=== PATIENT | male | born 1965 ===

== ENCOUNTER → 2025-09-13 | Outpatient (CLI) | payer OTHER ==
[2025-09-13 20:02] LABS: Creatinine, Urine Random 84.5 mg/dL (27.00-270.00); Microalbumin, Random Urine 19.8 mg/L (0.000-20.000)
== END ==
LOC: LAB 16:15 → LAB SHORT 16:15
PROVIDERS: Nurse Practitioner Family
DX: E11.9 Type 2 diabetes mellitus without complications (principal)
CPT/HCPCS: 82043; 82570